=== PATIENT | female | born 1995 | race Caucasian/White ===

== ENCOUNTER 2019-05-29 14:04 | Emergency (ER) | payer MEDICAID, OTHER ==
--- NOTE | 2019-05-29 15:21 | EDM.PDOC ---
ED HPI GENERAL MEDICAL PROBLEM - General Chief Complaint: Skin Complaint Stated Complaint: PAINFUL RASH Time Seen by Provider: 05/29/19 15:00 Source of Information: Reports: Patient, Family History Limitations: Reports: No Limitations - History of Present Illness INITIAL COMMENTS - FREE TEXT/NARRATIVE: Patricia is a 23 year old female, presents to the ED today with c/o increasing wound to right arm pit. Started a week ago after she knicked herself with a razor, got worse the last two days, no fever/chills/drainage. Has been using Mom 's Clobetasol for two days with no relief. Onset: Gradual - Related Data Allergies Allergy/AdvReac Type Severity Reaction Status Date / Time bupropion [From Wellbutrin] Allergy Severe Respiratory Verified 05/29/19 15:14 Distress levetiracetam [From Keppra] Allergy Severe Seizure Verified 05/29/19 15:14 topiramate [From Topamax] Allergy Severe Depression Verified 05/29/19 15:15 tramadol Allergy Severe Respiratory Verified 05/29/19 15:13 Distress hydromorphone [From Dilaudid] Allergy Intermediate Rash Verified 05/29/19 15:16 Sulfa (Sulfonamide Allergy Intermediate Rash Verified 05/29/19 15:13 Antibiotics) Home Meds: Home Meds Citalopram [Citalopram HBr] 20 mg PO DAILY 05/29/19 [History] Norgestimate-Ethinyl Estradiol [Ortho Tri-Cyclen 28 Tablet] 1 tab PO DAILY 05/29 [History] lamoTRIgine [Lamictal] 400 mg PO DAILY 05/29/19 [History] ED ROS GENERAL - Review of Systems Review Of Systems: ROS reveals no pertinent complaints other than HPI. ED EXAM, SKIN/RASH Exam: See Below Exam Limited By: No Limitations General Appearance: Alert, WD/WN, No Apparent Distress Respiratory/Chest: No Respiratory Distress Cardiovascular: Regular Rate, Rhythm Extremities: Normal Inspection Neurological: Alert, Oriented, CN II-XII Intact Skin: Warm, Dry, Other (4 cm area of erythema with ? fungal component, no streaking, warm to touch, top layer of skin has peeled off to this area) Course - Vital Signs Last Recorded V/S: Last Vital Signs Temp 35.6 C 05/29/19 14:41 Pulse 74 05/29/19 14:41 Resp 12 05/29/19 14:41 BP 115/69 05/29/19 14:41 Pulse Ox 97 05/29/19 14:41 Patricia is a 23 year old female, presents with wound to right armpit, please refer to HPI and focused exam. Patient's wound appears to have fungal and cellulitic component, no signs of sepsis, no abscess formation, no lymphadenopathy. Will start patient on Keflex and Lotrisone cream and have her follow up wit PCP in [place] next week, patient told to avoid soaps, lotions, deodorants and shaving until healed. Reasons to return discussed, patient agreeable and discharged in stable condition. Departure - Departure Time of Disposition: 16:00 Disposition: Home, Self-Care 01 Condition: Good Clinical Impression: Wound of axillary region, Cellulitis of axilla, right - Discharge Information Instructions: Cellulitis, Adult Referrals: PCP,None [Primary Care Provider] - Forms: ED Department Discharge Additional Instructions: Start antibiotics today as well as Lotrisone cream. Avoid any use of deodorant, lotions, soaps until healed. Follow up with primary care when you return home. I would use some 4x4 gauze tucked into armpit to keep cream where it should be and avoid excess moisture.
== END 2019-05-29 15:57 | disposition home or self-care (01) ==
LOC: JP.ED 14:04
DX: S41.101A Unspecified open wound of right upper arm, initial encounter (principal); L03.111 Cellulitis of right axilla; Z88.8 Allergy status to other drugs, medicaments and biological substances; Z88.5 Allergy status to narcotic agent; Z79.899 Other long term (current) drug therapy; W26.8XXA Contact with other sharp object(s), not elsewhere classified, initial encounter
CPT/HCPCS: 99282